=== PATIENT | male | born 1985 | race Hispanic/Latino ===

== ENCOUNTER 2023-08-06 18:28 | Emergency (ER) | payer SELFPAY ==
[2023-08-06] MEDS ORDERED: IBUPROFEN 400 MG TAB ONE (19:07)
--- NOTE | 2023-08-06 19:12 | RAD REPORT ---
EXAM DESCRIPTION: RAD - Wrist Left 3 View - 08/06/2023 7:05 pm CLINICAL HISTORY: Pain;Swelling Pain COMPARISON: No comparisons FINDINGS: No fracture or dislocation seen. No foreign body or other soft tissue abnormality. IMPRESSION: Negative examination.
--- NOTE | 2023-08-06 19:29 | EDPHYS ---
Physician Documentation [facility] Name: Casper Mulligan Age: 38 yrs Sex: Male : 1985 Arrival Date: 08/06/2023 Time: 18:28 Bed 9 Private MD: ED Physician Zeeshan Arciniega HPI: 08/06 19:00 This 38 yrs old Male presents to ER via Ambulatory with complaints of Wrist cp Pain. 19:00 The patient or guardian reports pain, swelling, tenderness. Context: resulted from an cp unknown cause. Onset: The symptoms/episode began/occurred today. 19:00 Associated signs and symptoms: Pertinent negatives: decreased sensation distally, cp numbness distally, injury. Patient reports HX of carpal tunnel of left wrist that he treats by wearing brace. Pain started yesterday, noticed swelling radial side of left wrist since removing brace yesterday. Denies injury. Historical: - Allergies: 18:39 No Known Allergies; ko1 - Immunization history:: Adult Immunizations unknown. - Social history:: Smoking status: Patient denies any tobacco usage or history of. ROS: 19:05 MS/extremity: Positive for pain, swelling, tenderness, of the radial side of left cp wrist, Negative for injury or acute deformity, paresthesias. 19:05 Constitutional: Negative for body aches, chills, fever. cp 19:05 Neck: Negative for pain with movement, pain at rest. 19:05 Skin: Negative for cellulitis, rash. 19:05 Neuro: Negative for numbness, tingling, weakness. 19:05 All other systems are negative. Exam: 19:10 Constitutional: The patient appears in no acute distress, alert, awake, non-toxic, well cp developed, well nourished. 19:10 Neck: ROM/movement: is normal, is supple, without pain, no range of motions limitations.cp 19:10 Chest/axilla: Inspection: normal. 19:10 Respiratory: the patient does not display signs of respiratory distress, Respirations: normal, no use of accessory muscles, no retractions, labored breathing, is not present, Breath sounds: are clear throughout, no decreased breath sounds. 19:10 Back: pain, is absent, ROM is normal. 19:10 Musculoskeletal/extremity: Extremities: grossly normal except: noted in the left wrist: swelling, pain, tenderness to palpation along extensor tendon of left thumb, pain with flexion of left thumb, Perfusion: the extremity is normally perfused throughout, the left thumb Sensation intact. 19:10 Skin: cellulitis, is not appreciated, no rash present. Vital Signs: 18:36 BP 157 / 99; Pulse 75; Resp 18; Temp 99.3; Pulse Ox 100% ; ko1 Procedures: 19:45 Splinting: Splint applied to left wrist using wrist splint, thumb spica type. applied cp by nurse. Examined by me, post splint application: neurovascular intact, Patient tolerated well. MDM: 18:47 Patient medically screened. cp 19:00 Differential diagnosis: closed fracture, tendonitis, sprain, cellulitis. 19:28 Data reviewed: vital signs, nurses notes, radiologic studies, plain films. 19:28 I considered the following discharge prescriptions or medication management in the emergency department Medications were administered in the Emergency Department. See MAR. Independent interpretation of the following test(s) in the Emergency Department X-Ray: My interpretation is images of left wrist negative for fracture. Counseling: I had a detailed discussion with the patient and/or guardian regarding the historical points, exam findings, and any diagnostic results supporting the discharge/admit diagnosis, radiology results, the need for outpatient follow up, a hand specialist, to return to the emergency department if symptoms worsen or persist or if there are any questions or concerns that arise at home. 08/06 18:54 Order name: XRAY Wrist LEFT 3 view; Complete Time: 19:23 08/06 19:23 Interpretation: Report reviewed. 08/06 19:31 Order name: [facility] [place]. Order: see if velcro thumb spica splint helps; Complete Time: 19:33 Administered Medications: 18:56 Drug: Ibuprofen PO 800 mg Route: PO; ko1 19:31 Follow up: Response: No adverse reaction bp 19:58 Follow up: Response: No adverse reaction kb3 Disposition Summary: 08/06/23 19:29 Discharge Ordered Location: Home cp Problem: new cp Symptoms: have improved cp Condition: Stable cp Diagnosis - Other synovitis and tenosynovitis, left hand cp Followup: cp - With: Alli Andres MD - When: 1 week - Reason: pain and swelling continues Discharge Instructions: - Discharge Summary Sheet cp - Tenosynovitis cp Forms: - Medication Reconciliation Form cp - Thank You Letter cp - Antibiotic Education cp - Prescription Opioid Use cp - Patient Portal Instructions cp - Leadership Thank You Letter cp Prescriptions: - Diclofenac Sodium 75 mg Oral Tablet Sustained Release - take 1 tablet by ORAL route 2 times per day; 30 tablet; Refills: 0, Product cp Selection Permitted Addendum: 08/07/2023 20:00 Co-signature as Attending Physician, Zeeshan Arciniega MD I reviewed the patient's care r t provided by the Advanced Practice Provider and agree with the diagnosis and treatment plan. Signatures: Dispatcher [employer] EDMS Lester Garcia PA PA cp Aruna Ramirez RN RN ko1 Zeeshan Arciniega MD MD rt Roldan Noguera RN bp Indira Lao RN kb3 Corrections: (The following items were deleted from the chart) 08/06 19:29 19:29 Pain in left wrist cp cp 08/07 19:43 08/06 19:00 Onset: The symptoms/episode began/occurred 1 week(s) ago, cp cp
--- NOTE | 2023-08-06 19:29 | ER ---
Nurse's Notes [facility] Name: Casper Mulligan Age: 38 yrs Sex: Male : 1985 Arrival Date: 08/06/2023 Time: 18:28 Bed 9 Private MD: Diagnosis: Other synovitis and tenosynovitis, left hand Presentation: 08/06 18:36 Chief complaint: Patient states: has had issues with carpal tunnel and had a brace on, ko1 took it off and now the left wrist is hurting when moving the thumb. Coronavirus screen: At this time, the client does not indicate any symptoms associated with coronavirus-19. Ebola Screen: No symptoms or risks identified at this time. Initial Sepsis Screen: Does the patient meet any 2 criteria? No. Patient's initial sepsis screen is negative. Does the patient have a suspected source of infection? No. Patient's initial sepsis screen is negative. Risk Assessment: Do you want to hurt yourself or someone else? Patient reports no desire to harm self or others. Onset of symptoms was August 06, 2023. 18:36 Method Of Arrival: Ambulatory ko1 18:36 Acuity: SANDI 4 ko1 Triage Assessment: 18:39 General: Appears in no apparent distress. comfortable, Behavior is cooperative, ko1 appropriate for age. Pain: Complains of pain in left wrist. Historical: - Allergies: 18:39 No Known Allergies; ko1 - Immunization history:: Adult Immunizations unknown. - Social history:: Smoking status: Patient denies any tobacco usage or history of. Screenin:55 [facility] ED Fall Risk Assessment (Adult) History of falling in the last 3 months, kb3 including since admission No falls in past 3 months (0 pts). Abuse screen: Denies threats or abuse. Denies injuries from another. Nutritional screening: No deficits noted. Tuberculosis screening: No symptoms or risk factors identified. Assessment: 18:55 General: Appears in no apparent distress. comfortable, Behavior is calm, cooperative, kb3 PT reports he wears a left wrist brace secondary to a history of carpel tunnel syndrome. Reports he took his brace off today because he began experiencing burning in the lateral wrist. No swelling or redness noted.. 18:55 Musculoskeletal: Reports pain in dorsal aspect of left wrist and palmar aspect of left kb3 wrist. Vital Signs: 18:36 BP 157 / 99; Pulse 75; Resp 18; Temp 99.3; Pulse Ox 100% ; ko1 ED Course: 18:32 Patient arrived in ED. ts1 18:38 [facility] cp 18:38 Zeeshan Arciniega MD is Attending Physician. cp 18:39 Triage completed. ko1 18:39 Arm band placed on right wrist. Patient placed in waiting room, Patient notified of ko1 wait time. 18:55 Patient has correct armband on for positive identification. Call light in reach. kb3 Provided Education on: Plan of care. 18:55 No provider procedures requiring assistance completed. Patient did not have IV access kb3 during this emergency room visit. 18:56 Aruna Ramirez, RN is Primary Nurse. ko1 19:06 XRAY Wrist LEFT 3 view In Process Unspecified. EDMS 19:27 Alli Anders MD is Referral Physician. cp Administered Medications: 18:56 Drug: Ibuprofen PO 800 mg Route: PO; ko1 19:31 Follow up: Response: No adverse reaction bp 19:58 Follow up: Response: No adverse reaction kb3 Medication: 18:55 VIS not applicable for this client. kb3 Outcome: 18:55 Discharged to home ambulatory. kb3 18:55 Condition: stable 18:55 Discharge instructions given to patient, Instructed on discharge instructions, follow up and referral plans. Demonstrated understanding of instructions, follow-up care, medications. 19:29 Discharge ordered by MD. cp 19:58 Patient left the ED. kb3 Signatures: Dispatcher [employer] EDMS Lester Garcia PA PA cp Roldan Noguera RN RN bp Indira Lao RN RN kb3 Aruna Ramirez, FRANCHESCA RN ko1 Joya Ambriz PAS PAS ts1
[2023-08-06 20:32] VITALS: BP 157/99; TEMP 99.3; O2SAT 100
== END 2023-08-06 19:58 | disposition home or self-care (01) ==
LOC: ER 18:28
DX: M65.842 Other synovitis and tenosynovitis, left hand (principal)
CPT/HCPCS: 99283